=== PATIENT | female | born 1965 | race Caucasian/White ===

== ENCOUNTER 2017-08-13 13:42 | Emergency (ER) | payer SELFPAY ==
[2017-08-13] MEDS ORDERED: METHYLPREDNISOLONE 125 MG INJ ONE (14:02)
[2017-08-13] MEDS ORDERED: MAGNESIUM SULFATE 1 gm IVPB 1 GM/100 ML BAG IV ONE (14:03)
[2017-08-13] MEDS ORDERED: MORPHINE 4 MG/ML SYR ONE (14:03)
[2017-08-13] MEDS ORDERED: LEVALBUTEROL 1.25 MG/3 ML NEB ONE (14:03)
[2017-08-13] MEDS ORDERED: ONDANSETRON 4 MG/2 ML VIAL ONE (14:08)
[2017-08-13] MEDS ORDERED: KETOROLAC 30 MG/ML INJ ONE (14:32)
[2017-08-13] MEDS ORDERED: LORazepam 2 MG/ML VIAL ONE (14:32)
[2017-08-13 14:37] LABS: Absolute Lymphocytes (CBC) 1.9 K/uL (0.7-4.9); Absolute Monocytes 1.7 K/uL (0.1-1.3); Absolute Neutrophil 10.6 K/uL (1.8-8.0); Basophils % 0.4 % (0-1.3); Eosinophils % 1.3 % (0-4.4); Hematocrit 45.2 % (36.0-45.0); Lymphocytes % 13.2 % (15.3-44.8); MCH 30.3 pg (27.0-35.0); MCV 91.3 fL (80-100); MPV 8.4 fL (7.6-11.3); Monocytes % 11.9 % (3.3-12.3); RBC Red Blood Cell Count 4.96 M/uL (3.86-4.86)
[2017-08-13 14:42] LABS: Protime INR 1.12
[2017-08-13 14:51] LABS: Potassium 3.7 mEq/L (3.6-5.0)
[2017-08-13 14:57] LABS: Albumin 4.2 g/dL (3.2-5.5); Bilirubin Direct 0.3 mg/dL (0-0.2); Bilirubin Total 1.1 mg/dL (0.3-1.2); Magnesium 1.7 mg/dL (1.8-2.5); Protein, Total 8.3 g/dL (6.0-8.3)
--- NOTE | 2017-08-13 14:58 | RAD REPORT ---
EXAM DESCRIPTION: RAD - Chest Single View - 08/13/2017 2:32 pm CLINICAL HISTORY: Shortness of breath, difficulty breathing, right-sided neck pain COMPARISON: April 2017 TECHNIQUE: AP portable chest image was obtained 1424 hours . FINDINGS: No focal mass, consolidation or failure. Lung markings are mildly prominent but stable fro m prior imaging. Heart and vasculature are normal. No measurable pleural effusion and no pneumothorax . Degenerative change and minimal scoliotic curvature noted. No acute bone finding. No acute aortic f indings suspected. IMPRESSION: No acute cardiopulmonary process. No significant change from comparison.
[2017-08-13 15:20] LABS: CKMB Creatine Kinase MB 10.5 ng/ml (0.3-4.0)
[2017-08-13 16:21] LABS: Urine Blood NEGATIVE (NEG); Urine Glucose NEGATIVE (NEG); Urine Protein NEGATIVE (NEG); Urine pH 5.5 (5.0-7.0)
[2017-08-13 16:35] LABS: Arterial Blood Carboxyhemoglob 1.2 % (0-1.5)
--- NOTE | 2017-08-13 16:37 | ER ---
Nurse's Notes [facility] Name: Michelle Cota Age: 51 yrs Sex: Female : 1965 Arrival Date: 08/13/2017 Time: 13:43 Bed 4 Private MD: Diagnosis: Shortness of breath Presentation: 08/13 13:44 Presenting complaint: Patient states: Pt reports difficulty breathing x 2-3 weeks that ph has worsened over the last few days, pt 93% RA w/ rapid respirations, placed on nasal cannula w/ no change, then placed on CPAP Spo2 improved to 98%, pt also c/o pain in R side of neck and nellie feet swelling, hx of COPD. Transition of care: patient was not received from another setting of care. Onset of symptoms was August 13, 2017. Care prior to arrival: Oxygen administered. via CPAP or BiPAP. 13:44 Method Of Arrival: EMS: [facility] ph 13:44 Acuity: JAYJAY 2 ph Historical: - Allergies: 13:52 Codeine; ph 13:52 PHENOL; ph - PMHx: 13:52 chronic back pain; Diverticulitis; Fibromyalgia; Hepatitis; neuropathy; sciatica; COPD; ph - PSHx: 13:52 Plate to R jaw; ph - Immunization history:: Adult Immunizations unknown. - Social history:: Smoking status: Patient uses tobacco products, smokes one pack cigarettes per day. Screenin:52 Abuse screen:. Abuse screen: Denies threats or abuse. Denies injuries from another. ph Nutritional screening: No deficits noted. Tuberculosis screening: No symptoms or risk factors identified. Fall Risk No fall in past 12 months (0 pts). Secondary diagnosis (15 points) IV access (20 points). Ambulatory Aid- None/Bed Rest/Nurse Assist (0 pts). Gait- Normal/Bed Rest/Wheelchair (0 pts) Mental Status- Oriented to own ability (0 pts). Total Up Fall Scale indicates Low Risk Score (25-44 pts). Fall prevention measures have been instituted. Side Rails Up X 2 Placed close to Nursing Station Frequent Obs/Assesments occuring As available Patient and Family Educated on Fall Prevention Program and strategies. Assessment: 13:54 General: Appears distressed, uncomfortable, well groomed, Behavior is cooperative, ph appropriate for age, anxious, restless, Denies fever. Pain: Complains of pain in right sternocleidomastoid. Neuro: Level of Consciousness is awake, alert, obeys commands, Oriented to person, place, time, situation. Cardiovascular: Reports shortness of breath, Capillary refill < 3 seconds in bilateral fingers Patient's skin is warm and dry. Cardiovascular: Edema is 1+ to left ankle, left foot, left toes, right ankle, right foot and right toes. Cardiovascular: Rhythm is sinus tachycardia. Respiratory: Reports shortness of breath at rest cough that is productive, labored breathing pain with respiration Airway is patent Respiratory effort is labored, Respiratory pattern is tachypnea Breath sounds with crackles in left posterior lower lobe and right posterior lower lobe. GI: Reports lower abdominal pain. : Reports pain in suprapubic area with urination. Derm: Skin is intact, is healthy with good turgor, Skin is pink, warm \\T\\ dry. Musculoskeletal: Circulation, motion, and sensation intact. Range of motion: intact in all extremities. 14:30 Reassessment: Patient appears in no apparent distress at this time. Patient and/or ph family updated on plan of care and expected duration. Pain level reassessed. Pt appears anxious, remains restless, continues to c/o pain in neck, states, " That morphine didn't do anything for it." ERP notified, see MAR. 15:10 Reassessment: Patient appears in no apparent distress at this time. Patient and/or ph family updated on plan of care and expected duration. Pain level reassessed. Patient is alert, oriented x 3, equal unlabored respirations, skin warm/dry/pink. Pt resting quietly w/ eyes closed, respirations even and unlabored, awakens easily, reports that pain has decreased to 5/10, states," It's still there but it's not as bad as it was, awaiting lab results, bipap remains in place, tolerating well, VSS will continue to monitor. 16:09 Reassessment: Patient appears in no apparent distress at this time. No changes from ph previously documented assessment. Patient and/or family updated on plan of care and expected duration. Pain level reassessed. 16:30 Reassessment: Patient appears in no apparent distress at this time. Patient and/or ph family updated on plan of care and expected duration. Pain level reassessed. Patient is alert, oriented x 3, equal unlabored respirations, skin warm/dry/pink. Bipap removed per ERP, pt tolerating well, maintaining Spo2 at 97% RA. Vital Signs: 13:47 BP 134 / 116; Pulse 110; Resp 30; Temp 99.4; Pulse Ox 93% on R/A; Weight 63.5 kg; ph Height 5 ft. 5 in. (165.10 cm); Pain 10/10; 14:40 BP 121 / 83; Pulse 96; Resp 23; Pulse Ox 99% on BiPAP; bm6 15:14 BP 136 / 88; Pulse 98; Resp 16; Pulse Ox 99% on 40% BiPAP; Pain 5/10; ph 16:30 BP 133 / 82; Pulse 97; Resp 18; Pulse Ox 97% on R/A; ph 17:30 BP 137 / 81; Pulse 98; Resp 18; Temp 97.8; Pulse Ox 98% on R/A; ph 13:47 Body Mass Index 23.30 (63.50 kg, 165.10 cm) ph ED Course: 13:43 Patient arrived in ED. ph 13:46 Triage completed. ph 13:48 Adam Kovacs PA is PHCP. cp 13:48 Servando Hughes MD is Attending Physician. cp 13:52 Arm band placed on. ph 13:59 Patient has correct armband on for positive identification. Bed in low position. Call ph light in reach. Side rails up X 1. Pulse ox on. NIBP on. Warm blanket given. 14:00 Inserted saline lock: 18 gauge in left Blood collected. bm6 14:19 EKG done, by certified surgical tech/first assistant. reviewed by Adam FERNANDEZ. at1 14:29 Mercy Barrientos, RN is Primary Nurse. ph 14:29 X-ray completed. Portable x-ray completed in exam room. sw 14:32 XRAY Chest (1 view) In Process Unspecified. EDMS 15:17 Notified ED physician of a critical lab result(s). CKMB 10.5. hb 17:41 No provider procedures requiring assistance completed. IV discontinued, intact, ph bleeding controlled, No redness/swelling at site. Pressure dressing applied. Administered Medications: 14:10 Drug: morphine 2 mg Route: IVP; Site: left antecubital; ph 19:46 Follow up: Response: No adverse reaction; Pain is decreased ph 14:11 Drug: Zofran 4 mg Route: IVP; Site: left antecubital; ph 14:30 Follow up: Response: No adverse reaction; Nausea is decreased ph 14:13 Drug: Magnesium Sulfate 1 grams Route: IVPB; Infused Over: 1 hrs; Site: left ph antecubital; 15:30 Follow up: Response: No adverse reaction; IV Status: Completed infusion ph 14:15 Drug: SOLU-Medrol 125 mg Route: IVP; Site: left antecubital; ph 14:30 Follow up: Response: No adverse reaction ph 14:20 Drug: Xopenex (3) 1.25 mg Route: Inhalation; ph 15:00 Follow up: Response: No adverse reaction ph 14:35 Drug: Ativan 0.5 mg Route: IVP; Site: left antecubital; ph 15:00 Follow up: Response: No adverse reaction; Anxiety decreased ph 19:46 Not Given (Other Intervention Used): NS 0.9% 1000 ml IV at 1 bolus Per protocol; 1000 ph mL bolus Outcome: 16:36 Discharge ordered by . cp 17:41 Patient left the ED. ph 17:41 Discharged to home ambulatory. ph 17:41 Condition: good 17:41 Discharge instructions given to patient, Instructed on discharge instructions, follow up and referral plans. medication usage, Demonstrated understanding of instructions, follow-up care, medications, Prescriptions given X 2. Signatures: Dispatcher [employer] EDMS Corinna mcpherson, tag stringer EKG Tat1 Mercy Barrientos RN RN ph Warren, Shannon sw Page, Corey, PA PA cp Baxter, Heather, RN RN Reagan Tuttle bm6 Corrections: (The following items were deleted from the chart) 15:14 13:54 General: Appears distressed, uncomfortable, well groomed, Behavior is ph cooperative, appropriate for age, anxious, Denies fever, ph
--- NOTE | 2017-08-13 16:37 | EDPHYS ---
Physician Documentation [facility] Name: Michelle Cota Age: 51 yrs Sex: Female : 1965 Arrival Date: 08/13/2017 Time: 13:43 Bed 4 Private MD: ED Physician Servando Hughes HPI: 08/13 14:00 This 51 yrs old Female presents to ER via EMS with complaints of Breathing cp Difficulty. 14:00 The patient has shortness of breath at rest. Onset: The symptoms/episode began/occurred cp 2 week(s) ago. 14:00 Duration: The symptoms are continuous, and are steadily getting worse. cp 14:00 Associated signs and symptoms: Pertinent positives: non-productive cough, Pertinent cp negatives: chest pain, fever, hemoptysis, vomiting. Severity of symptoms: in the emergency department the symptoms are unchanged. Historical: - Allergies: 13:52 Codeine; ph 13:52 PHENOL; ph - PMHx: 13:52 chronic back pain; Diverticulitis; Fibromyalgia; Hepatitis; neuropathy; sciatica; COPD; ph - PSHx: 13:52 Plate to R jaw; ph - Immunization history:: Adult Immunizations unknown. - Social history:: Smoking status: Patient uses tobacco products, smokes one pack cigarettes per day. ROS: 14:12 Constitutional: Negative for body aches, chills, fever, poor PO intake. cp 14:12 Eyes: Negative for injury, pain, redness, and discharge. cp 14:12 ENT: Negative for drainage from ear(s), ear pain, sore throat, difficulty swallowing, difficulty handling secretions. 14:12 Neck: Negative for pain with movement, pain at rest, stiffness, tenderness. 14:12 Cardiovascular: Negative for chest pain, edema, palpitations. 14:12 Respiratory: Positive for cough, shortness of breath, Negative for pleurisy. 14:12 Abdomen/GI: Negative for abdominal pain, vomiting, diarrhea, constipation, black/tarry stool, rectal bleeding. 14:12 Skin: Negative for cellulitis, rash. 14:12 Neuro: Negative for altered mental status, headache, numbness, syncope, near syncope, weakness. 14:12 All other systems are negative. Exam: 14:15 ECG was reviewed by the Attending Physician. cp 14:20 Constitutional: The patient appears alert, awake, non-diaphoretic, non-toxic, well cp developed, well nourished. 14:20 Head/Face: Normocephalic, atraumatic. cp 14:20 Eyes: Periorbital structures: appear normal, Pupils: equal, round, and reactive to light and accomodation, Extraocular movements: intact throughout, Conjunctiva: normal, no exudate, no injection, Sclera: no appreciated abnormality, Lids and lashes: appear normal, bilaterally. 14:20 ENT: External ear(s): are unremarkable, Ear canal(s): are normal, clear, TM's: bulging, is not appreciated, bilaterally, dullness, bilaterally, erythema, is not appreciated, bilaterally, Nose: is normal, Mouth: Lips: moist, Oral mucosa: moist, Posterior pharynx: Airway: no evidence of obstruction, patent. 14:20 Neck: ROM/movement: is normal, is supple, no range of motions limitations, no meningismus, no nuchal rigidity. 14:20 Chest/axilla: Inspection: normal, Palpation: is normal, no crepitus, no tenderness. 14:20 Cardiovascular: Rate: tachycardic, Rhythm: regular. 14:20 Respiratory: moderate respiratory distress is noted, Respirations: labored breathing, that is moderate, accessory muscle usage, is absent, shallow respirations, that is moderate, tachypnea, that is moderate, Breath sounds: decreased breath sounds, that are moderate, throughout, stridor, is not appreciated, wheezing: is heard diffusely. 14:20 Abdomen/GI: Inspection: abdomen appears normal, Bowel sounds: active, all quadrants, Palpation: abdomen is soft and non-tender, in all quadrants, rebound tenderness, is not appreciated, voluntary guarding, is not appreciated, involuntary guarding, is not appreciated. 14:20 Back: pain, is absent, ROM is normal. 14:20 Skin: cellulitis, is not appreciated, no rash present. 14:20 Neuro: Orientation: to person, place \T\ time. Mentation: is normal, Cerebellar function: is grossly normal, Motor: moves all fours, strength is normal, Sensation: no obvious gross deficits. Vital Signs: 13:47 BP 134 / 116; Pulse 110; Resp 30; Temp 99.4; Pulse Ox 93% on R/A; Weight 63.5 kg; ph Height 5 ft. 5 in. (165.10 cm); Pain 10/10; 14:40 BP 121 / 83; Pulse 96; Resp 23; Pulse Ox 99% on BiPAP; bm6 15:14 BP 136 / 88; Pulse 98; Resp 16; Pulse Ox 99% on 40% BiPAP; Pain 5/10; ph 16:30 BP 133 / 82; Pulse 97; Resp 18; Pulse Ox 97% on R/A; ph 17:30 BP 137 / 81; Pulse 98; Resp 18; Temp 97.8; Pulse Ox 98% on R/A; ph 13:47 Body Mass Index 23.30 (63.50 kg, 165.10 cm) ph MDM: 13:48 Patient medically screened. cp 14:00 Differential diagnosis: Bronchitis Chronic Obstructive Pulmonary Disease Myocardial cp Infarction pneumonia, Pneumothorax pulmonary edema, Pulmonary Embolism Sepsis Unstable Angina. 15:57 Physician consultation: [facility] Alvaro SARAVIA was called at 15:57, was contacted at 15:57, cp regarding admission, to the telemetry unit. patient's condition, and will see patient in ED, shortly. 16:35 Data reviewed: vital signs, nurses notes, lab test result(s), EKG, radiologic studies, cp plain films. Response to treatment: the patient's symptoms have markedly improved after treatment, and as a result, I will discharge patient. 08/13 13:55 Order name: Basic Metabolic Panel; Complete Time: 15:31 cp 08/13 15:06 Interpretation: Normal except: NA 132; CL 100; CRE 1.01; GFR 58. cp 08/13 13:55 Order name: BNP; Complete Time: 15:05 cp 08/13 13:55 Order name: CBC with Diff; Complete Time: 15:05 cp 08/13 15:32 Interpretation: Normal except: WBC 14.5; RBC 4.96; HCT 45.2; LYM% 13.2; NEUT A 10.6; cp MNA 1.7. 04 13:55 Order name: Ckmb; Complete Time: 15:31 cp 04 15:31 Interpretation: Abnormal: CKMB 10.5. cp 08/13 13:55 Order name: CPK; Complete Time: 15:31 cp 08/13 15:31 Interpretation: Abnormal: CPK 378. cp 08/13 13:55 Order name: LFT's; Complete Time: 15:31 cp 04 15:31 Interpretation: Normal except: SGOT 63; SGPT 64; GLOB 4.1; A/G 1.0; BILID 0.3. cp 04/ 13:55 Order name: Magnesium; Complete Time: 15:31 cp 04 15:32 Interpretation: Abnormal. cp 04 13:55 Order name: PT-INR; Complete Time: 15:05 cp 04 16:39 Interpretation: Abnormal: PT 13.2. cp 08/13 13:55 Order name: Ptt, Activated; Complete Time: 15:05 cp 08/13 13:55 Order name: Troponin (emerg Dept Use Only); Complete Time: 15:05 cp 08/13 13:55 Order name: Blood Culture Adult (2) cp 08/13 13:55 Order name: ABG; Complete Time: 16:38 cp 08/13 15:53 Order name: Urine Dipstick--Ancillary (enter results); Complete Time: 16:38 mw2 08/13 15:53 Order name: Urine --Ancillary (enter results); Complete Time: 16:38 mw2 08/13 13:55 Order name: Urine Test (obtain specimen); Complete Time: 16:09 cp 08/13 13:55 Order name: XRAY Chest (1 view); Complete Time: 15:05 cp 08/13 13:55 Order name: EKG; Complete Time: 13:56 cp 08/13 13:55 Order name: Cardiac monitoring; Complete Time: 14:30 cp 08/13 13:55 Order name: EKG - Nurse/Tech; Complete Time: 14:38 cp 08/13 13:55 Order name: IV Saline Lock; Complete Time: 14:38 cp 08/13 13:55 Order name: Labs collected and sent; Complete Time: 14:38 cp 08/13 13:55 Order name: O2 Per Protocol; Complete Time: 16:09 cp 04 16:35 Order name: Diet Regular; Complete Time: 16:35 bd 08/13 13:55 Order name: O2 Sat Monitoring; Complete Time: 16:09 cp 08/13 13:55 Order name: Urine Dipstick-Ancillary (obtain specimen) cp EC:15 Rate is 111 beats/min. Rhythm is regular. NC interval is normal. QRS interval is cp normal. QT interval is normal. No ST changes noted. Interpreted by me. Reviewed by me. Administered Medications: 14:10 Drug: morphine 2 mg Route: IVP; Site: left antecubital; ph 19:46 Follow up: Response: No adverse reaction; Pain is decreased ph 14:11 Drug: Zofran 4 mg Route: IVP; Site: left antecubital; ph 14:30 Follow up: Response: No adverse reaction; Nausea is decreased ph 14:13 Drug: Magnesium Sulfate 1 grams Route: IVPB; Infused Over: 1 hrs; Site: left ph antecubital; 15:30 Follow up: Response: No adverse reaction; IV Status: Completed infusion ph 14:15 Drug: SOLU-Medrol 125 mg Route: IVP; Site: left antecubital; ph 14:30 Follow up: Response: No adverse reaction ph 14:20 Drug: Xopenex (3) 1.25 mg Route: Inhalation; ph 15:00 Follow up: Response: No adverse reaction ph 14:35 Drug: Ativan 0.5 mg Route: IVP; Site: left antecubital; ph 15:00 Follow up: Response: No adverse reaction; Anxiety decreased ph 19:46 Not Given (Other Intervention Used): NS 0.9% 1000 ml IV at 1 bolus Per protocol; 1000 ph mL bolus Disposition: 08/14 08:10 Co-signature as Attending Physician, Servando Hughes MD I agree with the assessment and mt plan of care. Disposition: 08/13/17 16:36 Discharged to Home. Impression: Shortness of breath. - Condition is Stable. - Discharge Instructions: Shortness of Breath, Aspirin and Your Heart. - Prescriptions for Albuterol Sulfate 90 mcg/actuation - inhale 1-2 puff by INHALATION route every 4-6 hours; 1 Inhaler. Prednisone 20 mg Oral Tablet - take 2 tablet by ORAL route once daily for 5 days; 10 tablet. - Medication Reconciliation Form, Thank You Letter, Antibiotic Education, Prescription Opioid Use form. - Follow up: Private Physician; When: 1 - 2 days; Reason: Recheck today's complaints. - Problem is new. - Symptoms have improved. Signatures: Dispatcher [employer] Mercy Bingham RN RN ph Adam Kovacs PA PA Servando Marie MD MD wa Corrections: (The following items were deleted from the chart) 08/13 15:32 15:05 Normal except: WBC 14.5; RBC 4.96; HCT 45.2; LYM% 13.2; NEUT A 10.6. cp cp
--- NOTE | 2017-08-16 22:50 | EKG ---
Test Date: 2017-08-13 Test Time: 13:42:48 Medical Record Retrieval Specialist: REMI MEASUREMENT RESULTS: Intervals: Rate: 111 OH: 116 QRSD: 78 QT: 330 QTc: 448 Moore: P: 68 OH: 116 QRS: 101 T: 71 INTERPRETIVE STATEMENTS: Sinus tachycardia Rightward axis Borderline ECG Compared to ECG 04/09/2017 16:17:22 Sinus rhythm no longer present T-wave abnormality no longer present Possible ischemia no longer present Prolonged QT interval no longer present Electronically Signed On 08-16-17 22:49:51 CDT by Negro Granados
== END 2017-08-13 17:41 | disposition home or self-care (01) ==
LOC: ER 13:42
DX: R06.02 Shortness of breath (principal); F17.210 Nicotine dependence, cigarettes, uncomplicated; Z88.5 Allergy status to narcotic agent; Z88.8 Allergy status to other drugs, medicaments and biological substances
CPT/HCPCS: 36415; 71045; 80048; 80076; 81003; 81025; 82550; 82553; 82805; 83735; 83880; 84484; 85025; 85610; 85730; 87040; 93005; 96365; 96375; 99285; J2405; J2930; J3475

== ENCOUNTER 2017-10-20 19:58 | Emergency (ER) | payer SELFPAY ==
[2017-10-20 20:58] LABS: Absolute Lymphocytes (CBC) 2.2 K/uL (0.7-4.9); Absolute Monocytes 0.6 K/uL (0.1-1.3); Absolute Neutrophil 1.9 K/uL (1.8-8.0); Basophils % 1.4 % (0-1.3); Eosinophils % 9.4 % (0-4.4); Hematocrit 39.8 % (36.0-45.0); Lymphocytes % 41.9 % (15.3-44.8); MCH 31.5 pg (27.0-35.0); MPV 8.3 fL (7.6-11.3); Monocytes % 11.2 % (3.3-12.3); RBC Red Blood Cell Count 4.29 M/uL (3.86-4.86)
--- NOTE | 2017-10-20 21:27 | RAD REPORT ---
EXAM DESCRIPTION: CT - Abdomen Pelvis Wo Contrast - 10/20/2017 9:05 pm CLINICAL HISTORY: Abdominal pain /dysuria COMPARISON: October 2016 TECHNIQUE: Computed axial tomography of the abdomen and pelvis was obtained. IV and oral contrast we re not requested. All CT scans are performed using dose optimization technique as appropriate and may include automated exposure control or mA/KV adjustment according to patient size. FINDINGS: The evaluation of solid organs, vessels and bowel is limited secondary to the lack of con trast administration. The liver is mildly enlarged Spleen, pancreas, adrenals and kidneys appear grossly normal. The appendix is normal. There is no evidence of diverticulitis. A large amount stool is present throughout the colon IMPRESSION: Large amount stool is present throughout the colon. Mild hepatomegaly
--- NOTE | 2017-10-20 21:31 | EDPHYS ---
Physician Documentation [facility] Name: Michelle Cota Age: 52 yrs Sex: Female : 1965 Arrival Date: 10/20/2017 Time: 19:58 Bed 20 Private MD: ED Physician Palomo Jimenez HPI: 10/20 22:01 This 52 yrs old Female presents to ER via Ambulatory with complaints of Pain ps1 With Urination, Back Pain. 22:01 patient with intermittent flank pain for a week. She feels as though she has a urinary ps1 tract infection. Symptoms associated with dysuria and frequency. Flank pain is bilateral and additionally has lower abdominal pain. Rated as mild to moderate. Has a hx of diverticulitis. . 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 - Social history:: Smoking status: Patient uses tobacco products, smokes one-half pack cigarettes per day. - Ebola Screening: : Patient negative for fever greater than or equal to 101.5 degrees Fahrenheit, and additional compatible Ebola Virus Disease symptoms Patient denies exposure to infectious person Patient denies travel to an Ebola-affected area in the 21 days before illness onset. ROS: 22:03 Constitutional: Negative for fever, chills, and weight loss, Eyes: Negative for injury, ps1 pain, redness, and discharge, Cardiovascular: Negative for chest pain, palpitations, and edema, Respiratory: Negative for shortness of breath, cough, wheezing, and pleuritic chest pain. 22:03 MS/Extremity: Negative for injury and deformity, Skin: Negative for injury, rash, and discoloration, Neuro: Negative for headache, weakness, numbness, tingling, and seizure, Psych: Negative for depression, anxiety, suicide ideation, homicidal ideation, and hallucinations. 22:03 Abdomen/GI: Positive for abdominal pain. 22:03 : Positive for urinary symptoms, urinary frequency, burning with urination. Exam: 22:03 Constitutional: This is a well developed, well nourished patient who is awake, alert, ps1 and in no acute distress. Head/Face: Normocephalic, atraumatic. Eyes: Pupils equal round and reactive to light, extra-ocular motions intact. Lids and lashes normal. Conjunctiva and sclera are non-icteric and not injected. Cardiovascular: Regular rate and rhythm. No gallops, murmurs, or rubs. Normal PMI, no JVD. No pulse deficits. Respiratory: Lungs have equal breath sounds bilaterally, clear to auscultation and percussion. No rales, rhonchi or wheezes noted. No increased work of breathing, no retractions or nasal flaring. Abdomen/GI: Soft, non-tender, with normal bowel sounds. No distension or tympany. No guarding or rebound. No evidence of tenderness throughout. MS/ Extremity: Pulses equal, no cyanosis. Neurovascular intact. Full, normal range of motion. Neuro: Awake and alert, GCS 15, oriented to person, place, time, and situation. Cranial nerves II-XII grossly intact. Sensory grossly intact. Vital Signs: 20:14 BP 128 / 77; Pulse 72; Resp 18; Temp 98.1; Pulse Ox 97% on R/A; Height 5 ft. 5 in. fc (165.10 cm) (R); Pain 7/10; 20:17 Weight 68.67 kg (M); fc 22:01 BP 134 / 82; Pulse 53; Resp 17 S; Pulse Ox 97% on R/A; jd3 20:17 Body Mass Index 25.19 (68.67 kg, 165.10 cm) MDM: 20:28 Patient medically screened. ps1 22:03 Data reviewed: vital signs, nurses notes, lab test result(s), radiologic studies. ps1 10/20 20:20 Order name: CBC with Diff; Complete Time: 21:04 ps1 10/20 20:20 Order name: CMP; Complete Time: 22:00 ps1 10/20 20:32 Order name: Urine Dipstick--Ancillary (enter results); Complete Time: 22:00 eb 10/20 20:50 Order name: Urine --Ancillary (enter results) eb 10/20 20:50 Order name: Urine --Ancillary; Complete Time: 22:00 EDMN 10/20 20:54 Order name: CT Abd/Pelvis - Without Cont; Complete Time: 21:30 ps1 10/20 20:20 Order name: Urine Dipstick-Ancillary (obtain specimen); Complete Time: 20:29 ps1 10/20 20:20 Order name: Urine Test (obtain specimen); Complete Time: 21:00 ps1 Administered Medications: No medications were administered Disposition: 10/20/17 21:31 Discharged to Home. Impression: Abdominal and pelvic pain, Constipation. - Condition is Stable. - Discharge Instructions: Abdominal Pain, Women. - Prescriptions for magnesium citrate - take 1 bottle by ORAL route one time; 1 bottle. Diflucan 150 mg Oral Tablet - take 1 tablet by ORAL route one time for 1 day; 1 tablet. - Medication Reconciliation Form, Thank You Letter, Antibiotic Education, Prescription Opioid Use form. - Follow up: Private Physician; When: As needed; Reason: Recheck today's complaints, Continuance of care, Re-evaluation by your physician. Follow up: Emergency Department; When: As needed; Reason: Fever > 102 F, Trouble breathing, Worsening of condition. - Problem is new. - Symptoms are unchanged. Signatures: Dispatcher [employer] [facility] Lexi John RN RN Justice Mike RN RN jPalomo Reyna MD MD ps1 Corrections: (The following items were deleted from the chart) 22:08 21:31 10/20/2017 21:31 Discharged to Home. Impression: Abdominal and pelvic pain; jd3 Constipation. Condition is Stable. Forms are Medication Reconciliation Form, Thank You Letter, Antibiotic Education, Prescription Opioid Use. Follow up: Private Physician; When: As needed; Reason: Recheck today's complaints, Continuance of care, Re-evaluation by your physician. Follow up: Emergency Department; When: As needed; Reason: Fever > 102 F, Trouble breathing, Worsening of condition. Problem is new. Symptoms are unchanged. ps1
--- NOTE | 2017-10-20 21:31 | ER ---
Nurse's Notes [facility] Name: Michelle Cota Age: 52 yrs Sex: Female : 1965 Arrival Date: 10/20/2017 Time: 19:58 Bed 20 Private MD: Diagnosis: Abdominal and pelvic pain;Constipation Presentation: 10/20 20:08 Presenting complaint: Patient states: that she is having burning with urination along fc with lower back pain. Thinks she may have a UTI. Started approx 1 week ago. Transition of care: patient was not received from another setting of care. Onset of symptoms was October 13, 2017. Risk Assessment: Do you want to hurt yourself or someone else? Patient reports no desire to harm self or others. Initial Sepsis Screen: Does the patient meet any 2 criteria? No. Patient's initial sepsis screen is negative. Does the patient have a suspected source of infection? No. Patient's initial sepsis screen is negative. Care prior to arrival: Medication(s) given: Motrin, last at 1400. 20:08 Method Of Arrival: Ambulatory 20:08 Acuity: JAYJAY 4 Triage Assessment: 20:12 General: Appears uncomfortable, slender, Behavior is calm, cooperative, appropriate for age. Pain: Complains of pain in low back area Pain currently is 7 out of 10 on a pain scale. Quality of pain is described as burning, aching, Pain began gradually, Is continuous, Aggravated by urination. EENT: No deficits noted. Neuro: Level of Consciousness is awake, alert, obeys commands, Oriented to person, place, time, situation. Cardiovascular: No deficits noted. Respiratory: No deficits noted. GI: No deficits noted. : Reports burning with urination, pain in bilateral lower quadrant(s) in lower back. Derm: Skin is pink, warm \T\ dry. Musculoskeletal: Circulation, motion, and sensation intact. Capillary refill < 3 seconds, Range of motion: intact in all extremities, Reports pain in low back area. 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 - Social history:: Smoking status: Patient uses tobacco products, smokes one-half pack cigarettes per day. - Ebola Screening: : Patient negative for fever greater than or equal to 101.5 degrees Fahrenheit, and additional compatible Ebola Virus Disease symptoms Patient denies exposure to infectious person Patient denies travel to an Ebola-affected area in the 21 days before illness onset. Screenin:59 Abuse screen: Denies threats or abuse. Nutritional screening: No deficits noted. jd3 Tuberculosis screening: No symptoms or risk factors identified. Fall Risk IV access (20 points). Ambulatory Aid- Gait- Normal/Bed Rest/Wheelchair (0 pts) Mental Status- Oriented to own ability (0 pts). Total Up Fall Scale indicates No Risk (0-24 pts). Assessment: 20:15 General: Appears uncomfortable, Behavior is calm, cooperative, appropriate for age. jd3 Pain: Complains of pain in suprapubic area Pain radiates to back Quality of pain is described as aching, crampy. Neuro: Level of Consciousness is awake, alert, obeys commands, Oriented to person, place, time, situation. Cardiovascular: Heart tones S1 S2 present Capillary refill < 3 seconds Patient's skin is warm and dry. Respiratory: Airway is patent Respiratory effort is even, unlabored, Respiratory pattern is regular, symmetrical, Breath sounds are clear bilaterally. GI: Abdomen is round Bowel sounds present X 4 quads. Patient currently denies diarrhea, nausea, vomiting. : No signs and/or symptoms were reported regarding the genitourinary system. EENT: No signs and/or symptoms were reported regarding the EENT system. Derm: Skin is intact, Skin is dry, Skin is normal, Skin temperature is warm. Musculoskeletal: Circulation, motion, and sensation intact. Range of motion: intact in all extremities. 21:30 Reassessment: Patient appears in no apparent distress at this time. Patient and/or jd3 family updated on plan of care and expected duration. Pain level reassessed. Patient is alert, oriented x 3, equal unlabored respirations, skin warm/dry/pink. 22:07 Reassessment: Patient appears in no apparent distress at this time. Patient and/or jd3 family updated on plan of care and expected duration. Pain level reassessed. Patient is alert, oriented x 3, equal unlabored respirations, skin warm/dry/pink. Vital Signs: 20:14 BP 128 / 77; Pulse 72; Resp 18; Temp 98.1; Pulse Ox 97% on R/A; Height 5 ft. 5 in. fc (165.10 cm) (R); Pain 7/10; 20:17 Weight 68.67 kg (M); fc 22:01 BP 134 / 82; Pulse 53; Resp 17 S; Pulse Ox 97% on R/A; jd3 20:17 Body Mass Index 25.19 (68.67 kg, 165.10 cm) ED Course: 19:58 Patient arrived in ED. ds1 20:10 Triage completed. fc 20:14 Arm band placed on Patient placed in an exam room, on a stretcher. fc 20:17 Justice Rincon, [facility] is Primary Nurse. jd3 20:17 Palomo Jimenez MD is Attending Physician. ps1 20:39 Patient has correct armband on for positive identification. Bed in low position. Call tl3 light in reach. Side rails up X 1. Adult w/ patient. Pulse ox on. NIBP on. 20:39 Initial lab(s) drawn, by me, sent to lab. Inserted saline lock: 20 gauge in right tl3 antecubital area, using aseptic technique. Blood collected. 20:57 Patient moved to [place]. kw1 21:05 CT Abd/Pelvis - Without Cont In Process Unspecified. EDMS 21:06 CT completed. Patient tolerated procedure well. Patient moved back from AK. nj 21:37 Urine --Ancillary (enter results) Sent. tl3 22:00 No provider procedures requiring assistance completed. IV discontinued, intact, jd3 bleeding controlled, No redness/swelling at site. Pressure dressing applied. Administered Medications: No medications were administered Outcome: 21:31 Discharge ordered by . ps1 22:00 Discharged to home ambulatory, with family. jd3 22:00 Condition: stable 22:00 Discharge instructions given to patient, family, Instructed on discharge instructions, follow up and referral plans. medication usage, Demonstrated understanding of instructions, follow-up care, medications, Prescriptions given X 2. 22:08 Patient left the ED. jd3 Signatures: Dispatcher [employer] Lexi Sheffield, RN RN fc Adelita Schultz ds1 Sadi Patel Jonathon, RN RN jd3 Palomo Jimenez MD MD ps1 Lynette Chang kw1 Carolina Marroquin RN RN tl3
[2017-10-20 21:33] LABS: ALT/SGPT 99 U/L (12-78); AST/SGOT 75 U/L (15-37); Albumin 3.3 g/dL (3.4-5.0); Alkaline Phosphatase 52 U/L (45-117); BUN Blood Urea Nitrogen 14 mg/dL (7-18); Bicarbonate 32 mmol/L (21-32); Bilirubin Total 0.4 mg/dL (0.2-1.0); Glucose Level 95 mg/dL (74-106); Protein, Total 6.6 g/dL (6.4-8.2); Sodium Level 142 mmol/L (136-145)
[2017-10-20 21:40] LABS: Urine Specific Gravity 1.025 (1.005-1.030)
[2017-10-20 21:40] LABS: Urine Blood NEGATIVE (NEG); Urine Glucose NEGATIVE (NEG); Urine Protein NEGATIVE (NEG); Urine Specific Gravity 1.025 (1.005-1.030)
== END 2017-10-20 22:08 | disposition home or self-care (01) ==
LOC: ER 19:58
DX: K59.00 Constipation, unspecified (principal); Z88.5 Allergy status to narcotic agent; F17.210 Nicotine dependence, cigarettes, uncomplicated
CPT/HCPCS: 36415; 74176; 80053; 81003; 81025; 85025; 99284